=== PATIENT | female | born 1980 | race Caucasian/White ===

== ENCOUNTER 2018-02-11 05:42 | Day surgery (SDC) | payer OTHER ==
[~2018-02-11] VITALS: Ht 170.2 cm; Wt 93.0 kg
--- NOTE | ~2018-02-11 | H ---
[facility] [place] [address] HISTORY AND PHYSICAL Name: KVNG CALDERON Room #: 150-10 [facility]#: [id number] Admission: 02/11/18 Attend Phys: Richard Caballero MD Discharge: Date of : 78 Report #: [id number] THIS REPORT FOR: //name// CC: FAM unknown Richard Caballero DATE OF PROCEDURE: Her procedure is scheduled for 02/11/2018. HISTORY OF PRESENT ILLNESS: The patient is having problems with her tonsils. She has been on a lot of antibiotics over these last several years with throat infections. She has swollen tonsils and gets material from her tonsils that taste and smell terrible. She thinks that this is the reason for her difficulty swallowing. PAST MEDICAL HISTORY: Otherwise, significant for pituitary adenoma. MEDICATIONS: Include Protonix, Singulair, Zantac and phentermine. ALLERGIES: SHE IS ALLERGIC TO MORPHINE, DILAUDID AND NAPROSYN. PHYSICAL EXAMINATION: HEENT: Her tonsils are 2+ enlarged with deep crypts. They do not appear to be infected. She had a good anterior nasal airway. NECK: She had no adenopathy or masses in her neck. IMPRESSION: Chronic tonsillitis with tonsillar hypertrophy. PLAN: Tonsillectomy. <ELECTRONICALLY SIGNED> By: Richard Caballero MD 02/11/18 0811 1022 [id number] Richard Caballero MD /emmett
--- NOTE | ~2018-02-11 | H ---
[facility] [place] [address] HISTORY AND PHYSICAL Name: KVNG CALDERON Room #: 150-10 [facility] M.R.#: [id number] Admission: 02/11/18 Attend Phys: Richard Caballero MD Discharge: Date of : 78 Report #: [id number] THIS REPORT FOR: //name// CC: FAM unknown Richard Caballero DATE OF SERVICE: 02/11/2018 PREOPERATIVE DIAGNOSES: Chronic tonsillitis with tonsillar hypertrophy. POSTOPERATIVE DIAGNOSES: Chronic tonsillitis with tonsillar hypertrophy. OPERATIVE PROCEDURE: Tonsillectomy. ANESTHESIA: General endotracheal. DESCRIPTION OF PROCEDURE: The patient was taken to the operating room and placed in a supine position. General anesthesia was induced by endotracheal intubation. Once adequate general anesthesia was obtained, the patient was draped in a sterile manner. A Sharon-Vaughn mouth gag was placed in the patient's mouth and the tongue was deviated upward. The right tonsil was grasped and deviated towards midline. An incision was placed in the anterior tonsillar pillar using the Bovie electrocautery and a plane between tonsillar capsule and tonsillar fossa was established. Dissection was carried out on this plane using the Bovie and hemostasis was achieved during the dissection. Dissection was carried out from superior to inferior. The inferior pole was incised. The posterior tonsillar mucosa was incised. Tonsil was removed and sent to pathology. The left tonsil was removed in exactly the same manner. The area was then irrigated with normal saline. Hemostasis was verified in the tonsillar beds. The mouth gag was removed. The patient tolerated the procedure well. Blood loss was approximately 10 mL. The patient was then awoken and taken to the recovery room in stable condition for postoperative monitoring. By: 0900 1014 Richard Caballero MD /nt
[~2018-02-11 05:42] MED LIST: AMITRIPTYLINE H25 M2 PO; FIBER GUMMIES1 EACH PO; PHENTERMINE H37.5 M1 PO; PROTONIX40 M1 PO; RANITIDINE HCL300 M1 PO; SINGULAIR 10 MG10 M1 PO
[2018-02-11 07:05] VITALS: BP 134/76
[2018-02-11 09:44] VITALS: BP 134/76
== END 2018-02-11 11:35 | disposition home or self-care (01) ==
LOC: OR 05:42 → TBA 05:43 → OR 11:35
DX: J35.01 Chronic tonsillitis (principal); G43.909 Migraine, unspecified, not intractable, without status migrainosus; K21.9 Gastro-esophageal reflux disease without esophagitis; Z86.39 Personal history of other endocrine, nutritional and metabolic disease; Z79.899 Other long term (current) drug therapy; Z88.8 Allergy status to other drugs, medicaments and biological substances; Z90.49 Acquired absence of other specified parts of digestive tract; Z98.890 Other specified postprocedural states
CPT/HCPCS: 50010; 50101; 62110; 62900; 64032; 70005